=== PATIENT | male | born 1950 | race Caucasian/White ===

== ENCOUNTER → 2019-11-18 16:47 | Outpatient (CLI) | payer MEDICARE, OTHER, SELFPAY ==
--- NOTE | 2019-11-18 16:53 | DI.RAD.S_ITS ---
PROCEDURE: XR CHEST 2V INDICATIONS: CHEST PAIN FATIGUE TECHNIQUE: 2 views of the chest were acquired. COMPARISON: None. FINDINGS: Surgical changes and devices: None. Lungs and pleura: Lungs are clear. No pleural effusions or pneumothorax. Mediastinum: Mediastinal contours are normal. Heart size is normal. Bones and chest wall: No suspicious bony abnormalities. Soft tissues appear unremarkable. IMPRESSION: Normal for age, source of chest pain is not found. Dictated by: John Munoz M.D. on 11/18/2019 at 17:09 Approved by: John Munoz M.D. on 11/18/2019 at 17:10
== END ==
PROVIDERS: Referring Provider Internal Medicine Cardiovascular Disease; Visit Provider Student in an Organized Health Care Education/Training Program
DX: R07.9 Chest pain, unspecified (principal); R53.83 Other fatigue
CPT/HCPCS: 71046

== ENCOUNTER → 2020-08-23 15:29 | Outpatient (CLI) | payer MEDICARE, OTHER, SELFPAY ==
[2020-08-25 08:22] LABS: COVID19 Sendout Not Detected (Not Detect)
== END ==
PROVIDERS: Visit Provider Physician Assistant
DX: Z11.59 Encounter for screening for other viral diseases (principal)
CPT/HCPCS: 87635

== ENCOUNTER → 2020-08-26 14:52 | Outpatient (CLI) | payer MEDICARE, OTHER, SELFPAY ==
--- NOTE | 2020-09-02 10:07 | PM.PFT.1 ---
Pulmonary Function Test Referral & Results Date Patient Seen: 08/26/20 Requesting provider: Dary Kirby Indication: Short of breath Results: The spirometry demonstrates an FVC of 4.33 L which is 77% of predicted. The FEV1 was measured at 3.07 L which is 73% of predicted. The FEV1/FVC ratio was 71 which is 95% of predicted. Following the administration of bronchodilator there was 8% improvement in FEV1 and a 28% improvement in FEF 25-75%. Lung volumes show an SVC of 4.17 L which is 75% of predicted. The diffusing capacity was measured at 31.7 for which is 78% of predicted. No hemoglobin value was provided, so no correction for potential anemia could be made, if appropriate. The maximum voluntary ventilation was normal Interpretation: This study demonstrates mild obstructive lung disease based on reduction in FEV1. There is some minimal evidence of benefit following bronchodilator which is more pronounced in small airway flow based on improvement in FEF 25-75% as above. There may also be mild restrictive lung disease based on minimal reduction in lung volumes as above. There is also very mild reduction in diffusing capacity suggesting element of disease at the capillary alveolar level
== END ==
PROVIDERS: PCP Student in an Organized Health Care Education/Training Program; Referring Provider Student in an Organized Health Care Education/Training Program; Visit Provider Student in an Organized Health Care Education/Training Program
DX: R06.02 Shortness of breath (principal); J98.8 Other specified respiratory disorders
CPT/HCPCS: 94060; 94726

== ENCOUNTER → 2021-11-07 14:17 | Outpatient (CLI) | payer MEDICARE, OTHER, SELFPAY ==
[2021-11-07 18:32] LABS: COVID19 -Nasal RAPID Negative (Negative)
== END ==
PROVIDERS: PCP Student in an Organized Health Care Education/Training Program; Visit Provider Nurse Practitioner Family
DX: Z20.822 Contact with and (suspected) exposure to COVID-19 (principal)
CPT/HCPCS: 87635; C9803

== ENCOUNTER 2021-11-08 12:03 | Day surgery (SDC) | payer MEDICARE, OTHER, SELFPAY ==
--- NOTE | 2021-11-08 | PATH_ITS ---
[facility] Accession Number: [id number] . 01 Material submitted: . PART A: gastrointestinal site - ANTRUM BIOPSY PART B: gastrointestinal site - ANGULARIS BIOPSY PART C: gastrointestinal site - LESSOR CURVE POLYPS PART D: gastrointestinal site - GREATER CURVE POLYPS PART E: gastrointestinal site - BODY BIOPSY . 01 Clinical history: . DX COLONOSCOPY/EGD . 02 Diagnosis: A. Antrum, Biopsy: Gastric antral mucosa with no diagnostic abnormality. No evidence of Helicobacter organisms on H/E stain. Negative for intestinal metaplasia. Negative or dysplasia and malignancy. . B. Angularis, Biopsy: Gastric body mucosa with no diagnostic abnormality. No evidence of Helicobacter organisms on H/E stain. Negative for intestinal metaplasia. Negative or dysplasia and malignancy. . C. Lesser Curve Polyps, Biopsies: Gastric body mucosa with no diagnostic abnormality. No evidence of Helicobacter organisms on H/E stain. Negative for intestinal metaplasia. Negative or dysplasia and malignancy. . D. Greater Curve Polyps, Biopsies: Fundic gland polyps. Negative for Helicobacter organisms on H/E stain. Negative for dysplasia and malignancy. . E. Body, Biopsy: Gastric body mucosa with no diagnostic abnormality. No evidence of Helicobacter organisms on H/E stain. Negative for intestinal metaplasia. Negative or dysplasia and malignancy. [facility] 11/11/2021 1026 Local . 02 Electronically signed: . Riley Louis MD, PhD, Pathologist NPI- [id number] . 01 Gross description: . Part A: ANTRUM BIOPSY: Received in formalin is 1 fragment(s) of tidwell, soft tissue measuring 0.3 x 0.3 x 0.1 cm submitted entirely in 1 cassette(s) Part B: ANGULARIS BIOPSY: Received in formalin is 1 fragment(s) of tidwell, soft tissue measuring 0.3 x 0.3 x 0.2 cm submitted entirely in 1 cassette(s) Part C: LESSOR CURVE POLYPS: Received in formalin are 3 fragment(s) of tidwell, soft tissue measuring 0.3 x 0.2 x 0.1 cm to 0.3 x 0.1 x 0.1 cm submitted entirely in 1 cassette(s) Part D: GREATER CURVE POLYPS: Received in formalin are 2 fragment(s) of tidwell, soft tissue measuring 0.3 x 0.2 x 0.3 cm to 0.3 x 0.2 x 0.1 cm submitted entirely in 1 cassette(s) Part E: BODY BIOPSY: Received in formalin are 2 fragment(s) of tidwell, soft tissue measuring 0.3 x 0.3 x 0.2 cm to 0.1 x 0.1 x 0.1 cm submitted entirely in 1 cassette(s) /QBJ 11/09/2021 0851 Local . 02 Pathologist provided ICD-10: Z87.19, R15.9 . 02 CPT . 427197, 016248, 088318, 172867, 370475 Performed at: 01 [facility] [address] [id number] MD David Santoyo MD Phone: [phone] Performed at: 02 [facility] [address] [place], [place] [id number] MD Alma Koch MD Phone: [phone]
[2021-11-08 12:45] VITALS: BMI 29.0
[2021-11-08 12:58] VITALS: BP 158/92; PULSE 60; RESP 18; TEMP 36.6; O2SAT 99
[2021-11-08] MEDS: SODIUM CHLORIDE 0.9% 1,000 ML 84 ML IV (13:05)
--- NOTE | 2021-11-08 15:15 | PM.HP.1 ---
History of Present Illness History of Present Illness Date Patient Seen: 11/08/21 Time Patient Seen: 15:15 Chief complaint: DX COLONOSCOPY/EGD Narrative: I reviewed my note from September 26, 2021 no significant changes with the exception of I reviewed his prior histology from EGD 2016 and he there was some intestinal metaplasia at the site of an ulcer. Surveillance is therefore indicated. Patient History Family & Social History Social History: household members spouse Tobacco & Substance use: Smoking Status Never smoker alcohol intake frequency holiday/special occasion Substance Use Type marijuana Meds Home Medications and Allergies Home Medications Medication Instructions Recorded Confirmed Type lisinopril 20 1 tab PO QDAY #0 09/24/17 11/08/21 History mg-hydrochlorothiazide 12.5 mg tablet (Zestoretic) metformin 500 mg tablet,extended 500 mg PO QDAY #0 09/24/17 11/08/21 History release 24 hr (Glucophage XR) amlodipine 5 mg tablet 5 mg PO DAILY 11/08/21 11/08/21 History esomeprazole magnesium 40 mg 40 mg PO DAILY 11/08/21 11/08/21 History capsule,delayed release terazosin 1 mg capsule 1 mg PO DAILY 11/08/21 11/08/21 History Allergies Allergy/AdvReac Type Severity Reaction Status Date / Time No Known Drug Allergies Allergy Verified 11/08/21 13:05 Review of Systems Review of Systems ROS: Yes All systems reviewed with the patient and are negative except as otherwise documented Exam Vital Signs (past 8 hours): - 11/08/21 12:58 Temperature 97.8 F Pulse Rate 60 Respiratory Rate 18 Blood Pressure 158/92 H Pulse Oximetry 99 Oxygen Delivery Method Room Air Assessment & Plan Assessment & Plan narrative: Prior gastric intestinal metaplasia. Change in bowel habit with constipation and fecal leakage. EGD and colonoscopy are pursued today. Time Spent With Patient Critical Care time: I spent a total of [] minutes of critical care time on this patient's care today; this time is exclusive of procedural time.
--- NOTE | 2021-11-08 15:17 | PM.PREOP ---
Pre-operative Note COVID-19 COVID-19 status: Negative Result date/Date tested (Pos, Neg/Pending): 11/07/21 Interval Note History & Physical reviewed/Exam performed by Physician: No Changes to H&P: No ASA Class (for procedural sedation): II
--- NOTE | 2021-11-08 15:51 | PM.OP.EC ---
Operative Date/Time/Diagnoses Date of procedure: 11/08/21 Time of procedure: 15:51 Pre-op diagnosis: Prior gastric intestinal metaplasia, GERD, constipation change in bowel habits fecal incontinence Post-op diagnosis: same Procedure & Clinicians Study performed: EGD with biopsies and colonoscopy Same procedure as scheduled: Yes Indications: GERD prior gastric intestinal metaplasia change in bowel habit constipation fecal incontinence Surgeon: Dyllan Bell Procedure Notes SCOAP/Timeout: Done Procedure in detail: After the risks and benefits were explained, written and verbal informed consent was obtained. The patient was brought into the procedure room and placed into the left lateral decubitus position. Please see nurse hospice community liaison notes for sedation details. The scope was introduced into the mouth through the bite block and advanced under direct visualization to the 2nd portion of the duodenum. The scope was slowly withdrawn carefully examining the mucosa for any defects or lesions. Retroflexed views were accomplished in the stomach. The stomach was decompressed, the scope was then removed from the patient who tolerated the procedure well. The patient was then turned around a digital rectal examination accomplished no significant pathology appreciated. (Prior to the initial sedation digital rectal exam was accomplished and revealed reasonably normal tone slightly subjectively weak external anal sphincter mechanism, normal simulated defecation). The scope was introduced into the rectum and advanced to the cecum as identified by the appendiceal orifice and ileocecal valve. The scope was slowly withdrawn to carefully examine the mucosa for any defects or lesions. Multiple direct views were made through the dentate line for exclusion of pathology the colon was decompressed scope removed the patient tolerated the procedure well. Adult colonoscope Bowel prep fair copious amounts of irrigation and suction were required to render this adequate. Scope withdrawal time: 8 minutes Sedation minutes: 30 Complications: none Impression: 1. Duodenum this is normal from the bulb through to the 2nd portion. 2. Stomach: Mild gastropathy was seen. No mass lesions no outlet obstruction no significant pathology throughout. Gastric mapping was accomplished with biopsies from the antrum angularis lesser curve and gastric body. There were a couple of diminutive polyps that were taken from the greater curve. Retroflexed views of the LES were otherwise unremarkable. 3. Esophagus: The squamocolumnar junction correlated with the top of the gastric folds. GEJ was at 45 cm from the incisors. No acute erosive changes no strictures no mass lesions. There was a very small mucosal abrasion with the scope that we noted but no sustained bleeding. 4. Colon: No significant polyps mass lesions or inflammatory features identified throughout. Endoscopic diagnosis 1. Gastropathy 2. Diminutive gastric polyps 3. Grade 2 internal nonbleeding nonthrombosed hemorrhoids 4. Mildly subjectively weak external anal sphincter mechanism 5. Within bowel prep limitations visually unremarkable colonoscopy to cecum. Post-procedure Plan for aftercare: 1. Await histopathology 2. Continue anti-reflux therapy 3. Repeat colonoscopy 5 years time. 4. Owtc-[id number]-[id number] fiber supplementation for soft regular stools. 5. Follow up GI clinic. Disposition: PACU
[2021-11-08 15:56] VITALS: BP 133/74; PULSE 48; RESP 14; TEMP 36.4; O2SAT 99
[2021-11-08 16:00] VITALS: BP 165/85; PULSE 49; RESP 14; O2SAT 99
[2021-11-08 16:05] VITALS: BP 162/92; PULSE 45; RESP 16; O2SAT 100
[2021-11-08 16:10] VITALS: BP 171/87; PULSE 48; RESP 16; TEMP 36.4; O2SAT 100
[2021-11-08 16:17] VITALS: BP 159/84; PULSE 44; RESP 16; TEMP 36.4; O2SAT 100
== END 2021-11-08 16:34 | disposition home or self-care (01) ==
PROVIDERS: PCP Student in an Organized Health Care Education/Training Program; Referring Provider Internal Medicine Gastroenterology; Visit Provider Internal Medicine Gastroenterology
PROC: 0DJ08ZZ Inspection of Upper Intestinal Tract, Via Natural or Artificial Opening Endoscopic (ICD-10-PCS; CPT 43235; principal; 2021-11-08 15:00)
PROC: 0DJD8ZZ Inspection of Lower Intestinal Tract, Via Natural or Artificial Opening Endoscopic (ICD-10-PCS; CPT 45378; 2021-11-08 15:00)
DX: K59.00 Constipation, unspecified (principal); K21.9 Gastro-esophageal reflux disease without esophagitis; R15.9 Full incontinence of feces; Z87.19 Personal history of other diseases of the digestive system; I10 Essential (primary) hypertension; K31.9 Disease of stomach and duodenum, unspecified; K64.1 Second degree hemorrhoids; K31.7 Polyp of stomach and duodenum
CPT/HCPCS: 43239; 45378; J2704

== ENCOUNTER 2022-11-20 13:11 | Emergency (ER) | payer MEDICARE, OTHER, SELFPAY ==
[2022-11-20] VITALS (8 sets, daily range): BP systolic 100–164; BP diastolic 50–78; PULSE 38–54; RESP 14–20; TEMP 36.2; O2SAT 99; BMI 30.3
--- NOTE | 2022-11-20 13:27 | DI.RAD.S_ITS ---
PROCEDURE: XR CHEST 1V INDICATIONS: chest pain TECHNIQUE: One view of the chest was acquired. COMPARISON: [facility], CR, XR CHEST 2V, 11/18/2019, 16:54. FINDINGS: Surgical changes and devices: None. Lungs and pleura: On this semiupright portable chest examination, no large pneumothorax or large pleural effusions are seen. No focal infiltrates are seen. Mild generalized interstitial prominence can be seen. No focal infiltrates are seen. Mediastinum: Mediastinal contours appear normal. Heart size is mildly to moderately enlarged. Bones and chest wall: No suspicious bony lesions. Overlying soft tissues appear unremarkable. IMPRESSION: Cardiomegaly and interstitial prominence. CHF is suspected. Dictated by: George Brewster M.D. on 11/20/2022 at 13:06 Approved by: George Brewster M.D. on 11/20/2022 at 13:07
[2022-11-20] MEDS: ASPIRIN 81 MG CHEW TAB 324 MG PO (13:32)
[2022-11-20] MEDS: NITROGLYCERIN 0.4 MG SL TAB SL (13:33)
--- NOTE | 2022-11-20 13:38 | ED.CHESTPAIN ---
HPI - Chest Pain General Chief Complaint: Chest Pain Stated Complaint: CHEST PAIN Time Seen by Provider: 11/20/22 13:29 History of Present Illness HPI narrative: Patient is a 89-year-old male history of hypertension acid reflux presenting today with what he describes as heartburn. He says it has been ongoing for about a week. He thought today it was a little bit worse. In the shower he got a little nauseous when he got out he was extremely diaphoretic which never happened. Thought maybe the discomfort in his chest went to his jaw but did not actually feel too bad. He tried his acid reflux medicine at home it did not really help. Some point he was given nitroglycerin for an unknown reason he took 2 nitroglycerin at home which did seem to help and came to the ER. He describes pain is like a dull ache. No prior history of coronary artery disease. It does sound as though he had a heart catheterization by Dr. Sawyer about a year ago. Related Data Home Medications Medication Instructions Recorded Confirmed lisinopril 20 1 tab PO QDAY ##0 09/24/17 11/08/21 mg-hydrochlorothiazide 12.5 mg tablet (Zestoretic) metformin 500 mg tablet,extended 500 mg PO QDAY ##0 09/24/17 11/08/21 release 24 hr (Glucophage XR) amlodipine 5 mg tablet 5 mg PO DAILY 11/08/21 11/08/21 esomeprazole magnesium 40 mg 40 mg PO DAILY 11/08/21 11/08/21 capsule,delayed release terazosin 1 mg capsule 1 mg PO DAILY 11/08/21 11/08/21 Allergies Allergy/AdvReac Type Severity Reaction Status Date / Time No Known Drug Allergies Allergy Verified 11/08/21 13:05 Review of Systems Review of Systems Narrative: GENERAL: Denies chills, fatigue, malaise, fever, sweats, travel HEENT: Denies sinus pain, ear pain, sore throat, difficulty swallowing, neck pain RESPIRATORY: Denies dyspnea, cough, wheezing, hemoptysis, sputum. CARDIOVASCULAR: See HPI GASTROINTESTINAL: Denies nausea, vomiting, abdominal pain, diarrhea, constipation, melena. : Denies dysuria, frequency, incontinence, hematuria, urinary retention, flank pain. MUSCULOSKELETAL: Denies weakness, joint pain, or bony pain SKIN: No rash, no erythema, no pruritus NEUROLOGIC: Denies weakness, dizziness, headache, numbness, change in speech, confusion PSYCHIATRIC: No concerning psychosocial issues. 12 point review of systems is negative except for those stated above and HPI Patient History Social History household members: spouse Smoking Status: Never smoker Smoking Status: Never smoker alcohol intake frequency: holidays/special occasions only Substance Use Type: marijuana Exam Initial Vital Signs Initial Vital Signs: Vital Signs Temperature 97.1 F L 11/20/22 13:12 Pulse Rate 50 L 11/20/22 13:12 Respiratory Rate 20 11/20/22 13:12 Blood Pressure 164/78 H 11/20/22 13:12 Pulse Oximetry 99 11/20/22 13:12 Oxygen Delivery Method 11/20/22 13:12 GENERAL: Alert pleasant 72-year-old male and in no acute distress. HEENT: Head atraumatic,EOMI, pupils reactive, face symmetric, moist mucous membranes CARDIOVASCULAR: Regular rate and rhythm without murmurs, rubs or gallops. RESPIRATORY: Breath sounds equal bilaterally, no wheezes rales or rhonchi. ABDOMEN: Soft, nontender. Normoactive bowel sounds all 4 quadrants. No guarding or rebound. EXTREMITIES: Normal range of motion, no clubbing or edema. Neurovascularly intact NEUROLOGICAL: Alert and oriented x4.Normal gait and speech. SKIN: Warm, dry, no laceration, no petechiae, no rashes or lesions. Course Orders Ordered: ED Orders 11/20/22 13:24 Complete Blood Count AUTO DIFF Stat Comprehensive Metabolic Panel Stat D Dimer Stat Lipase Stat Magnesium Stat Partial Thromboplastin Time Stat Prothrombin Time INR Stat Troponin & CK Cardiac Panel Stat 11/20/22 13:27 XR chest 1V Stat COVID19 -Nasal RAPID/Pre-Proc Stat EKG-12 Lead Stat 11/20/22 13:29 BNP [NT-proBNP (BNP-Adult 18+)] Stat 11/20/22 13:36 EKG-12 Lead Routine Discontinued Medications Aspirin (Aspirin 81 Mg Chew Tab) 324 mg PO NOW ONE Stop: 11/20/22 13:28 Last Admin: 11/20/22 13:32 Dose: 324 mg Documented By: MALINA Heparin Sodium (Porcine) (Heparin 5,000 Unit/Ml Vial) 5,000 unit IV NOW ONE Stop: 11/20/22 13:44 Last Admin: 11/20/22 13:47 Dose: 5,000 unit Documented By: MALINA Heparin Sodium/Dextrose (Heparin Drip) 25,000 unit in 500 mls @ 20 mls/hr IV CONT DANIELLE; Protocol Last Titration: 11/20/22 14:06 Dose: 1,000 units/hr, 20 mls/hr Documented By: Admin: 11/20/22 13:48 Dose: 1,000 units/hr, 20 mls/hr Documented By: MALINA Nitroglycerin (Nitroglycerin 0.4 Mg Sl Tab) 0.4 mg SL [id number] PRN PRN Reason: Chest Pain Last Admin: 11/20/22 13:33 Dose: 0.4 mg Documented By: MALINA Vital Signs Vital signs: Vital Signs - 8 hr 11/20/22 13:33 11/20/22 13:12 11/20/22 13:25 Temperature 97.1 F L Pulse Rate 54 L 50 L 50 L Respiratory Rate 20 20 Blood Pressure 154/78 H 164/78 H 144/78 H Pulse Oximetry 99 99 Oxygen Delivery Method Room Air Room Air 11/20/22 13:40 11/20/22 13:30 11/20/22 13:45 Temperature Pulse Rate 38 L 45 L 39 L Respiratory Rate 14 16 15 Blood Pressure 100/78 138/78 133/70 Pulse Oximetry 99 99 Oxygen Delivery Method Room Air Room Air 11/20/22 13:50 11/20/22 13:55 Temperature Pulse Rate 44 L 41 L Respiratory Rate 17 19 Blood Pressure 122/70 117/50 L Pulse Oximetry Oxygen Delivery Method MDM - Chest Pain Lab Data Result diagrams: 11/20/22 13:24 11/20/22 13:24 Labs: Lab Results 11/20/22 11/20/22 11/20/22 Range/Units 13:24 13:24 13:24 WBC 6.8 (4.5-11.0) X10^3/uL RBC 4.93 (4.5-5.9) X10^6/uL Hgb 14.5 (13.5-17.5) g/dL Hct 42.6 (41-53) % MCV 86.5 (80-100) fL MCH 29.4 (26-34) PG MCHC 34.0 (30-36) % RDW 13.2 (11.6-14.8) % Plt Count 198 (150-400) X10^3/uL Neut % (Auto) 59.4 (50-75) % Lymph % (Auto) 28.8 (25-40) % Bosque % (Auto) 8.9 (3-14) % Eos % (Auto) 2.3 (2-4) % Baso % (Auto) 0.6 (0-2) % Neut # (Auto) 4100 (2606-6236) /uL Lymph # (Auto) 2000 (5291-9666) /uL Bosque # (Auto) 600 (0-900) /uL Eos # (Auto) 200 (0-450) /uL Baso # (Auto) 0 (0-100) /uL PT 12.1 (10.1-12.7) SECONDS INR 1.1 (0.9-1.3) APTT 27 (26-36) SECONDS D-Dimer (<500) ng/ml Sodium 140 (137-145) mmol/L Potassium 3.2 L (3.4-5.1) mmol/L Chloride 101 (98-107) mmol/L Carbon Dioxide 27 (22-32) mmol/L BUN 13 (9-20) mg/dL Creatinine 1.03 (0.66-1.25) mg/dL Estimated GFR > 60 (>60) mL/min BUN/Creatinine Ratio 12.6 (6-22) Glucose 141 H (80-110) mg/dL Calcium 9.6 (8.4-10.2) mg/dL Magnesium 1.9 (1.6-2.3) mg/dL Total Bilirubin 0.9 (0.2-1.3) mg/dL AST 28 (17-59) IU/L ALT 26 (<50) IU/L Alkaline Phosphatase 82 (38-126) U/L Total Creatine Kinase 67 (55-170) U/L CK-MB (CK-2) TNP CK-MB (CK-2) Rel Index TNP Troponin I 0.724 H* (0.01-0.034) ng/mL NT-Pro-B Natriuret Pep (<125) pg/mL Total Protein 7.4 (6.3-8.2) g/dL Albumin 4.3 (3.5-5.0) g/dL Globulin 3.1 (1.7-4.1) g/dL Albumin/Globulin Ratio 1.4 (1.0-2.8) Lipase 125 (23-300) U/L SARS-CoV-2 (PCR) (Negative) 11/20/22 11/20/22 11/20/22 Range/Units 13:24 13:27 13:29 WBC (4.5-11.0) X10^3/uL RBC (4.5-5.9) X10^6/uL Hgb (13.5-17.5) g/dL Hct (41-53) % MCV (80-100) fL MCH (26-34) PG MCHC (30-36) % RDW (11.6-14.8) % Plt Count (150-400) X10^3/uL Neut % (Auto) (50-75) % Lymph % (Auto) (25-40) % Bosque % (Auto) (3-14) % Eos % (Auto) (2-4) % Baso % (Auto) (0-2) % Neut # (Auto) (5136-7371) /uL Lymph # (Auto) (7395-2199) /uL Bosque # (Auto) (0-900) /uL Eos # (Auto) (0-450) /uL Baso # (Auto) (0-100) /uL PT (10.1-12.7) SECONDS INR (0.9-1.3) APTT (26-36) SECONDS D-Dimer 538 H (<500) ng/ml Sodium (137-145) mmol/L Potassium (3.4-5.1) mmol/L Chloride (98-107) mmol/L Carbon Dioxide (22-32) mmol/L BUN (9-20) mg/dL Creatinine (0.66-1.25) mg/dL Estimated GFR (>60) mL/min BUN/Creatinine Ratio (6-22) Glucose (80-110) mg/dL Calcium (8.4-10.2) mg/dL Magnesium (1.6-2.3) mg/dL Total Bilirubin (0.2-1.3) mg/dL AST (17-59) IU/L ALT (<50) IU/L Alkaline Phosphatase (38-126) U/L Total Creatine Kinase (55-170) U/L CK-MB (CK-2) CK-MB (CK-2) Rel Index Troponin I (0.01-0.034) ng/mL NT-Pro-B Natriuret Pep 231 H (<125) pg/mL Total Protein (6.3-8.2) g/dL Albumin (3.5-5.0) g/dL Globulin (1.7-4.1) g/dL Albumin/Globulin Ratio (1.0-2.8) Lipase (23-300) U/L SARS-CoV-2 (PCR) Negative (Negative) Imaging Data Chest x-ray: My Impression: No acute cardiopulmonary process Radiologist's Impression: [address] [place] [id number] XRay Report Signed Patient: Pelon Bassett MR#: [id number] : 1950 Acct:[id number] Age/Sex: 72 / M Date of Service: 11/20/22 Loc: ED Accession Number: [id number] ?? Procedure: XR chest 1V Ordering Provider: Nan Devries D.O. PROCEDURE:? XR CHEST 1V ? INDICATIONS:? chest pain ? TECHNIQUE:? One view of the chest was acquired.? ? COMPARISON:? [facility], , XR CHEST 2V, 11/18/2019, 16:54. ? FINDINGS:? ? Surgical changes and devices:? None.? ? Lungs and pleura:? On this semiupright portable chest examination, no large pneumothorax or large pleural effusions are seen.? No focal infiltrates are seen.? Mild generalized interstitial prominence can be seen.? No focal infiltrates are seen. ? Mediastinum:? Mediastinal contours appear normal.? Heart size is mildly to moderately enlarged.? ? Bones and chest wall:? No suspicious bony lesions.? Overlying soft tissues appear unremarkable.? IMPRESSION:? Cardiomegaly and interstitial prominence.? CHF is suspected. ? ? Dictated by: George Brewster M.D. on 11/20/2022 at 13:06 ? ? ECG Data Interpretation: EKG 1. Sinus rhythm with frequent PVCs ST depression noted in V4 V5 and V6 EKG 2. ST elevation to [address] depression in 1 aVL MDM Narrative Medical decision making narrative: Patient certainly has symptoms concerning for SC. Especially with diaphoresis nausea and ongoing chest discomfort not really resolved with antacid medication. 2nd EKG does confirm inferior STEMI. Dr. Moises Hood accepts at [facility] ED Patient is given aspirin started on heparin and nitro Discharge Plan Departure Patient Disposition: [facility] Clinical Impression: ST elevation SC (STEMI) Prescriptions: No Action lisinopril-hydrochlorothiazide [Zestoretic] 20 MG/12.5 MG tablet 1 tab PO QDAY Qty: 0 metformin [Glucophage XR] 500 MG tablet extended release 24 hr 500 mg PO QDAY Qty: 0 terazosin 1 mg capsule 1 mg PO DAILY Label Comments: TAKE 1 TABLET BY MOUTH EVERY NIGHT AT BEDTIME amlodipine 5 mg tablet 5 mg PO DAILY esomeprazole magnesium 40 mg capsule,delayed release(DR/EC) 40 mg PO DAILY Referrals: Dary Kirby MD [Primary Care Provider] -
[2022-11-20 13:41] LABS: Add Manual Diff / Slide Review NO; Basophils Absolute Auto 0 /uL (0-100); Basophils Percent Auto 0.6 % (0-2); Eosinophils Absolute Auto 200 /uL (0-450); Eosinophils Percent Auto 2.3 % (2-4); Hematocrit 42.6 % (41-53); Hemoglobin 14.5 g/dL (13.5-17.5); Lymphocytes Absolute Auto 2000 /uL (1100-4500); Lymphocytes Percent Auto 28.8 % (25-40); Mean Corpuscular Hemoglobin 29.4 PG (26-34); Mean Corpuscular Volume 86.5 fL (80-100); Monocytes Absolute Auto 600 /uL (0-900); Monocytes Percent Auto 8.9 % (3-14); Neutrophils Absolute Auto 4100 /uL (1500-7000); Neutrophils Percent Auto 59.4 % (50-75); Platelet Count 198 X10^3/uL (150-400); Red Blood Cell Count 4.93 X10^6/uL (4.5-5.9); Red Cell Distribution Width 13.2 % (11.6-14.8); White Blood Cell Count 6.8 X10^3/uL (4.5-11.0)
[2022-11-20] MEDS: HEPARIN 5,000 UNIT/ML VIAL 5000 UNIT IV (13:47)
[2022-11-20] MEDS: HEPARIN DRIP 25,000 UNIT/500 ML IV.SOLN 20 UNIT IV (13:48)
[2022-11-20 13:50] LABS: INR 1.1 (0.9-1.3); Prothrombin Time 12.1 SECONDS (10.1-12.7)
[2022-11-20 13:52] LABS: PTT Partial Thromboplastin Tim 27 SECONDS (26-36)
[2022-11-20] MEDS: NITROGLYCERIN 50 MG/250 ML INFUS..BTL IV (13:54)
[2022-11-20 14:02] LABS: COVID19 -Nasal RAPID Negative (Negative)
[2022-11-20 14:15] LABS: Alanine Aminotransferase 26 IU/L (<50); Albumin 4.3 g/dL (3.5-5.0); Albumin Globulin Ratio 1.4 (1.0-2.8); Alkaline Phosphatase 82 U/L (38-126); Aspartate Aminotransferase 28 IU/L (17-59); BUN Creatinine Ratio 12.6 (6-22); Bilirubin Total 0.9 mg/dL (0.2-1.3); Blood Urea Nitrogen 13 mg/dL (9-20); Calcium 9.6 mg/dL (8.4-10.2); Carbon Dioxide 27 mmol/L (22-32); Chloride 101 mmol/L (98-107); Creatine Kinase 67 U/L (55-170); Estimated Glomerular Filt Rate > 60 mL/min (>60); Globulin 3.1 g/dL (1.7-4.1); Glucose 141 mg/dL (80-110); HEMOLYSIS < 15 (0-50); Lipase 125 U/L (23-300); Magnesium 1.9 mg/dL (1.6-2.3); Potassium 3.2 mmol/L (3.4-5.1); Sodium 140 mmol/L (137-145); Total Protein 7.4 g/dL (6.3-8.2)
[2022-11-20 14:26] LABS: NT-proBNP (BNP-Adult 18+) 231 pg/mL (<125)
--- NOTE | 2022-11-20 14:41 | PC.NURSE ---
NTG gtt running at 1.5 ml/hr as ordered, transferred to [facility]- for Stat transfer to [facility] upon d/c.
[2022-11-20 14:46] LABS: D Dimer 538 ng/ml (<500)
[2022-11-20 14:52] LABS: Troponin I 0.724 ng/mL (0.01-0.034)
== END 2022-11-20 14:10 | disposition short-term general hospital (02) ==
PROVIDERS: Emergency Provider Emergency Medicine; PCP Student in an Organized Health Care Education/Training Program
DX: I21.3 ST elevation (STEMI) myocardial infarction of unspecified site (principal); R07.9 Chest pain, unspecified; Z20.822 Contact with and (suspected) exposure to COVID-19
CPT/HCPCS: 36415; 71045; 80053; 82550; 83690; 83735; 83880; 84484; 85025; 85379; 85610; 85730; 87635; 93005; 96365; 96375; 99284; C9803; J1644

== ENCOUNTER → 2022-12-06 13:22 | Outpatient (ROUT) | payer MEDICARE, OTHER, SELFPAY ==
[2022-12-06 13:47] LABS: Creatine Kinase 57 U/L (55-170)
[2022-12-06 13:57] LABS: Troponin I < 0.012 ng/mL (0.01-0.034)
== END ==
PROVIDERS: PCP Student in an Organized Health Care Education/Training Program; Visit Provider Family Medicine
DX: R07.9 Chest pain, unspecified (principal)
CPT/HCPCS: 82550; 84484

== ENCOUNTER → 2023-05-03 14:20 | Outpatient (CLI) | payer MEDICARE, OTHER, SELFPAY ==
--- NOTE | 2023-05-03 | DI.NM.S_ITS ---
PROCEDURE: NM SIMON PERF SPECT R&S PHARM Rest and pharmacological stress myocardial perfusion SPECT with gated imaging and ejection fraction RADIOPHARMACEUTICAL: 24.5 mCi Tc-99m tetrafosmin IV at rest and 26.1 mCi Tc-99m tetrafosmin IV at peak effect of pharmacological stress. Hco-cnd-aiwozyyl was performed. INDICATIONS: CHEST PAIN TECHNIQUE: Radiopharmaceutical was injected at peak stress test, and also at rest. SPECT images were obtained. SPECT myocardial perfusion images were displayed in short axis, horizontal long axis, and vertical long axis views. Gated images were reviewed using Trak software. COMPARISON: None. CARDIAC STRESS: A pharmacologic stress test was performed under the supervision of an attending staff, using an infusion of regadenoson 0.4 mg IV. Hemodynamic data: There is normal blood pressure and heart rate response to pharmacologic stress. Symptoms: The patient denied anginal chest pain. EKG: No diagnostic changes of ischemia; occasional PVCs noted. FINDINGS: Raw data: There is good myocardial uptake of radiotracer. No significant motion artifacts. Oaxx-ja-hefap ratio is 0.44 (normal is less than 0.38 for tetrafosmin tracer). Left ventricle function: Gated images demonstrate inferior hypokinesis. No segmental wall motion abnormalities. No transient ischemic dilation; TID is 1.01 (normal less than 1.3). Left ventricle resting end diastolic volume is 246 mL. Left ventricle stress ejection fraction is 52%; normal range is above 45%. Myocardial perfusion: There is a large size, moderate to severe intensity fixed inferior wall defect extending to the apex with some but not complete improvement in the basal to mid inferior wall and prone imaging. No reversible perfusion defects. IMPRESSION: Abnormal study however without evidence of ischemia. The fixed perfusion defect in the mid to distal and apical portion of the inferior wall along with inferior hypokinesis is consistent with scar. Normal LV function with cavity dilation based on calculated LVEDV the of 246 mL. PVCs noted throughout the study. Dictated by: Bobbi Rodriguez D.O. on 05/04/2023 at 16:00 Approved by: Bobbi Rodriguez D.O. on 05/04/2023 at 16:06
== END ==
PROVIDERS: PCP Family Medicine; Visit Provider Nurse Practitioner Family
DX: I25.119 Atherosclerotic heart disease of native coronary artery with unspecified angina pectoris (principal); I21.02 ST elevation (STEMI) myocardial infarction involving left anterior descending coronary artery; R07.9 Chest pain, unspecified; I44.7 Left bundle-branch block, unspecified; R94.39 Abnormal result of other cardiovascular function study
CPT/HCPCS: 78452; 93017; A9502; J2785

== ENCOUNTER → 2023-10-25 13:21 | Outpatient (CLI) | payer MEDICARE, OTHER, SELFPAY ==
--- NOTE | 2023-10-25 | DI.RAD.S_ITS ---
PROCEDURE: XR FOOT LT MIN 3V INDICATIONS: TOE INJURY TECHNIQUE: 3 views of the foot were acquired. COMPARISON: None. FINDINGS: Bones: Vertically oriented linear lucency traverses the proximal phalanx of the 3rd digit. Soft tissues: No tibiotalar joint effusion. Achilles tendon appears normal. IMPRESSION: 3rd digit fracture. Dictated by: Sourav Mariscal M.D. on 10/25/2023 at 15:30 Approved by: Sourav Mariscal M.D. on 10/25/2023 at 15:30
== END ==
PROVIDERS: PCP Family Medicine; Referring Provider Family Medicine; Visit Provider Family Medicine
DX: S92.512A Displaced fracture of proximal phalanx of left lesser toe(s), initial encounter for closed fracture (principal); X58.XXXA Exposure to other specified factors, initial encounter
CPT/HCPCS: 73630

== ENCOUNTER 2024-07-31 12:30 | Outpatient (RCR) | payer MEDICARE, OTHER, SELFPAY | END 2024-07-31 14:30 | LOC: CAR 12:30 | PROVIDERS: PCP Family Medicine; Referring Provider Internal Medicine Cardiovascular Disease; Visit Provider Internal Medicine Cardiovascular Disease | DX: Z95.820 Peripheral vascular angioplasty status with implants and grafts (principal) | CPT/HCPCS: 93798 ==

== ENCOUNTER 2024-10-24 05:43 | Emergency (ER) | payer MEDICARE, OTHER, SELFPAY ==
[2024-10-24 05:47] VITALS: BP 171/92; PULSE 95; O2SAT 98
[2024-10-24 05:49] VITALS: BP 171/92; PULSE 74; RESP 18; TEMP 36.1; O2SAT 97; BMI 28.5
[2024-10-24] MEDS: ONDANSETRON 4 MG ODT PO (05:55)
[2024-10-24] MEDS: KETOROLAC 30 MG/ML VIAL 15 MG IV (05:55)
[2024-10-24 06:00] VITALS: PULSE 50; O2SAT 99
--- NOTE | 2024-10-24 06:00 | ED.GENADULT ---
HPI - General Adult <Kevin Ceja DO - Last Filed: 10/24/24 17:54> General Chief complaint: Urogenital-Male Stated complaint: possible kidney stone Time Seen by Provider: 10/24/24 05:46 Source: patient Mode of arrival: Ambulatory History of Present Illness HPI narrative: Patient is a 73-year-old male here evaluation of left-sided abdominal/ flank pain. He was also having urinary hesitancy and frequency. He stated that his symptoms started actually 2 days ago. It went away for about 24 hours and then 12 hours ago it came back again. Is the same pain that he had 2 days ago. It was worse this time. Is having nausea but no vomiting. No fevers. Has not had a bowel movement in the past 12 hours. No history of kidney stones. He states that the discomfort is somewhat worse with palpation. No skin changes. Has not tried anything for the symptoms prior to arrival. Related Data Home Medications Medication Instructions Recorded Confirmed lisinopril 20 1 tab PO QDAY ##0 09/24/17 11/08/21 mg-hydrochlorothiazide 12.5 mg tablet (Zestoretic) metformin 500 mg tablet,extended 500 mg PO QDAY ##0 09/24/17 11/08/21 release 24 hr (Glucophage XR) amlodipine 5 mg tablet 5 mg PO DAILY 11/08/21 11/08/21 esomeprazole magnesium 40 mg 40 mg PO DAILY 11/08/21 11/08/21 capsule,delayed release terazosin 1 mg capsule 1 mg PO DAILY 11/08/21 11/08/21 Previous Rx's Medication Instructions Recorded hydrocodone 7.5 mg-acetaminophen 1 tab PO Q6H PRN pain #20 tabs 10/24/24 325 mg tablet lactulose 20 gram/30 mL oral 20 g (30 mL) PO BID #300 mL 10/24/24 solution naproxen 500 mg tablet 500 mg PO BID 7 days #14 tabs 10/24/24 ondansetron 4 mg disintegrating 4 mg PO Q6H PRN nausea and 10/24/24 tablet vomiting #10 tabs Allergies Allergy/AdvReac Type Severity Reaction Status Date / Time No Known Drug Allergies Allergy Verified 11/08/21 13:05 Review of Systems <DO Omar Monroy Last Filed: 10/24/24 17:54> Review of Systems ROS Unobtainable: All systems reviewed & are unremarkable except as noted in HPI and below Patient History <Kevin Ceja DO - Last Filed: 10/24/24 17:54> Social History household members: spouse Smoking Status: Never smoker Smoking Status: Never smoker alcohol intake frequency: holidays/special occasions only Substance Use Type: marijuana Exam <Kevin Ceja DO - Last Filed: 10/24/24 17:54> Initial Vital Signs Initial Vital Signs: Vital Signs Pulse Rate 95 H 10/24/24 05:47 Blood Pressure 171/92 H 10/24/24 05:47 Pulse Oximetry 98 10/24/24 05:47 Const General: cooperative and No ill appearing HENMT Head: normal to inspection and atraumatic Resp Effort & Inspection: normal respiratory effort Cardio Rate: regular rate GI Inspection: normal to inspection and non-distended Palpation: soft and No tender Skin General: no rashes or lesions noted Neuro General: patient alert, patient awake, patient oriented x3 and moves all extremities <Aayush Monroy MD - Last Filed: 10/24/24 11:21> Initial Vital Signs Initial Vital Signs: Vital Signs Pulse Rate 95 H 10/24/24 05:47 Blood Pressure 171/92 H 10/24/24 05:47 Pulse Oximetry 98 10/24/24 05:47 Course <Kevin Ceja DO - Last Filed: 10/24/24 17:54> Orders Ordered: Discontinued Medications Hydrocodone Bitart/Acetaminophen (Hydrocodone/Acet 5/325 Tablet) 1 tab PO NOW ONE Stop: 10/24/24 08:56 Last Admin: 10/24/24 09:05 Dose: 1 tab Documented By: JO Hydromorphone HCl (Hydromorphone 0.5 Mg Inj) 0.5 mg IV NOW ONE Stop: 10/24/24 08:04 Last Admin: 10/24/24 08:12 Dose: 0.5 mg Documented By: JO Ketorolac Tromethamine (Ketorolac 30 Mg/Ml Vial) 15 mg IV NOW ONE Stop: 10/24/24 05:48 Last Admin: 10/24/24 05:55 Dose: 15 mg Documented By: BENNY Lactulose (Lactulose 20 Gm/30 Ml Solution) 20 gm PO NOW ONE Stop: 10/24/24 09:07 Last Admin: 10/24/24 09:22 Dose: 20 gm Documented By: IBRAHIMA Ondansetron HCl (Ondansetron 4 Mg Odt) 4 mg PO NOW ONE Stop: 10/24/24 05:48 Last Admin: 10/24/24 05:55 Dose: 4 mg Documented By: BENNY Ondansetron HCl (Ondansetron 4 Mg/2 Ml Inj) 4 mg IV NOW ONE Stop: 10/24/24 08:04 Last Admin: 10/24/24 08:13 Dose: 4 mg Documented By: JO Vital Signs Vital signs: Vital Signs - 8 hr 10/24/24 05:47 10/24/24 05:47 10/24/24 05:49 Temperature 97.0 F L Pulse Rate 95 H 74 Respiratory Rate 18 Blood Pressure 171/92 H 171/92 H Pulse Oximetry 98 97 Oxygen Delivery Method Room Air 10/24/24 06:00 10/24/24 06:19 10/24/24 06:19 Temperature Pulse Rate 50 L 75 Respiratory Rate Blood Pressure 168/80 H Pulse Oximetry 99 98 Oxygen Delivery Method 10/24/24 06:30 10/24/24 06:30 10/24/24 09:33 Temperature Pulse Rate 51 L 69 Respiratory Rate 18 Blood Pressure 141/72 H 156/80 H Pulse Oximetry 97 99 Oxygen Delivery Method Room Air <Aayush Monroy MD - Last Filed: 10/24/24 11:21> Orders Ordered: Discontinued Medications Hydrocodone Bitart/Acetaminophen (Hydrocodone/Acet 5/325 Tablet) 1 tab PO NOW ONE Stop: 10/24/24 08:56 Last Admin: 10/24/24 09:05 Dose: 1 tab Documented By: JO Hydromorphone HCl (Hydromorphone 0.5 Mg Inj) 0.5 mg IV NOW ONE Stop: 10/24/24 08:04 Last Admin: 10/24/24 08:12 Dose: 0.5 mg Documented By: JO Ketorolac Tromethamine (Ketorolac 30 Mg/Ml Vial) 15 mg IV NOW ONE Stop: 10/24/24 05:48 Last Admin: 10/24/24 05:55 Dose: 15 mg Documented By: BENNY Lactulose (Lactulose 20 Gm/30 Ml Solution) 20 gm PO NOW ONE Stop: 10/24/24 09:07 Last Admin: 10/24/24 09:22 Dose: 20 gm Documented By: IBRAHIMA Ondansetron HCl (Ondansetron 4 Mg Odt) 4 mg PO NOW ONE Stop: 10/24/24 05:48 Last Admin: 10/24/24 05:55 Dose: 4 mg Documented By: BENNY Ondansetron HCl (Ondansetron 4 Mg/2 Ml Inj) 4 mg IV NOW ONE Stop: 10/24/24 08:04 Last Admin: 10/24/24 08:13 Dose: 4 mg Documented By: JO Vital Signs Vital signs: Vital Signs - 8 hr 10/24/24 05:47 10/24/24 05:47 10/24/24 05:49 Temperature 97.0 F L Pulse Rate 95 H 74 Respiratory Rate 18 Blood Pressure 171/92 H 171/92 H Pulse Oximetry 98 97 Oxygen Delivery Method Room Air 10/24/24 06:00 10/24/24 06:19 10/24/24 06:19 Temperature Pulse Rate 50 L 75 Respiratory Rate Blood Pressure 168/80 H Pulse Oximetry 99 98 Oxygen Delivery Method 10/24/24 06:30 10/24/24 06:30 10/24/24 09:33 Temperature Pulse Rate 51 L 69 Respiratory Rate 18 Blood Pressure 141/72 H 156/80 H Pulse Oximetry 97 99 Oxygen Delivery Method Room Air Medical Decision Making <Kevin Ceja DO - Last Filed: 10/24/24 17:54> Lab Data Lab results reviewed: Yes I reviewed the patient's lab results. 10/24/24 05:55 10/24/24 05:55 Labs: Lab Results 10/24/24 10/24/24 Range/Units 05:55 06:40 WBC 10.5 (4.5-11.0) X10^3/uL RBC 4.84 (4.5-5.9) X10^6/uL Hgb 14.3 (13.5-17.5) g/dL Hct 41.9 (41-53) % MCV 86.6 (80-100) fL MCH 29.5 (26-34) PG MCHC 34.1 (30-36) % RDW 13.4 (11.6-14.8) % Plt Count 177 (150-400) X10^3/uL Neut % (Auto) 85.4 H (50-75) % Lymph % (Auto) 7.7 L (25-40) % [place] % (Auto) 5.4 (3-14) % Eos % (Auto) 1.2 L (2-4) % Baso % (Auto) 0.3 (0-2) % Neut # (Auto) 9000 H (9067-8173) /uL Lymph # (Auto) 800 L (4870-7796) /uL [place] # (Auto) 600 (0-900) /uL Eos # (Auto) 100 (0-450) /uL Baso # (Auto) 0 (0-100) /uL Sodium 134 L (137-145) mmol/L Potassium 3.8 (3.4-5.1) mmol/L Chloride 100 (98-107) mmol/L Carbon Dioxide 25 (22-32) mmol/L BUN 23 H (9-20) mg/dL Creatinine 1.08 (0.66-1.25) mg/dL Estimated GFR > 60 (>60) mL/min BUN/Creatinine Ratio 21.3 (6-22) Glucose 184 H (80-110) mg/dL Calcium 9.5 (8.4-10.2) mg/dL Urine RBC 5-10/hpf H (0-5/HPF) Urine WBC 1-5/hpf (0-5/HPF) Ur Squamous Epith Cells 0-1 /hpf (0-5/HPF) Urine Bacteria None seen (None) Hyaline Casts 0-1/lpf (None) Ur Culture Indicated? Cult not indicated Vol Urine Centrifuged 10ml (spun) Urine Dip Bedside Urine Glucose Negative Bedside Urine Bilirubin - Negative Bedside Urine Ketone - Negative Urine Specific [place] 1.025 Bedside Urine Occult Blood ++ Bedside Urine pH 5.5 Bedside Urine Protein - Negative Bedside Urine Urobilinogen - Negative Bedside Urine Nitrite - Negative Bedside Urine Leukocytes - Negative Esterase Point of care testing: Urine Dip Bedside Urine Glucose Negative Bedside Urine Bilirubin - Negative Bedside Urine Ketone - Negative Urine Specific [place] 1.025 Bedside Urine Occult Blood ++ Bedside Urine pH 5.5 Bedside Urine Protein - Negative Bedside Urine Urobilinogen - Negative Bedside Urine Nitrite - Negative Bedside Urine Leukocytes - Negative Esterase MDM Narrative Medical decision making narrative: 73-year-old male arrives with 12 hours of persistent left-sided flank discomfort. Kidney functions unremarkable. Urinalysis has blood but no other signsOf infection. Pain is not reproducible with palpation. CT scan is ordered. Pain medication ordered. Care turned over to Dr. Monroy at change of shift to follow up on CT result and disposition. <Aayush Monroy MD - Last Filed: 10/24/24 11:21> Lab Data Labs: Lab Results 10/24/24 10/24/24 Range/Units 05:55 06:40 WBC 10.5 (4.5-11.0) X10^3/uL RBC 4.84 (4.5-5.9) X10^6/uL Hgb 14.3 (13.5-17.5) g/dL Hct 41.9 (41-53) % MCV 86.6 (80-100) fL MCH 29.5 (26-34) PG MCHC 34.1 (30-36) % RDW 13.4 (11.6-14.8) % Plt Count 177 (150-400) X10^3/uL Neut % (Auto) 85.4 H (50-75) % Lymph % (Auto) 7.7 L (25-40) % [place] % (Auto) 5.4 (3-14) % Eos % (Auto) 1.2 L (2-4) % Baso % (Auto) 0.3 (0-2) % Neut # (Auto) 9000 H (8493-9276) /uL Lymph # (Auto) 800 L (5148-7285) /uL [place] # (Auto) 600 (0-900) /uL Eos # (Auto) 100 (0-450) /uL Baso # (Auto) 0 (0-100) /uL Sodium 134 L (137-145) mmol/L Potassium 3.8 (3.4-5.1) mmol/L Chloride 100 (98-107) mmol/L Carbon Dioxide 25 (22-32) mmol/L BUN 23 H (9-20) mg/dL Creatinine 1.08 (0.66-1.25) mg/dL Estimated GFR > 60 (>60) mL/min BUN/Creatinine Ratio 21.3 (6-22) Glucose 184 H (80-110) mg/dL Calcium 9.5 (8.4-10.2) mg/dL Urine RBC 5-10/hpf H (0-5/HPF) Urine WBC 1-5/hpf (0-5/HPF) Ur Squamous Epith Cells 0-1 /hpf (0-5/HPF) Urine Bacteria None seen (None) Hyaline Casts 0-1/lpf (None) Ur Culture Indicated? Cult not indicated Vol Urine Centrifuged 10ml (spun) Urine Dip Bedside Urine Glucose Negative Bedside Urine Bilirubin - Negative Bedside Urine Ketone - Negative Urine Specific [place] 1.025 Bedside Urine Occult Blood ++ Bedside Urine pH 5.5 Bedside Urine Protein - Negative Bedside Urine Urobilinogen - Negative Bedside Urine Nitrite - Negative Bedside Urine Leukocytes - Negative Esterase Point of care testing: Urine Dip Bedside Urine Glucose Negative Bedside Urine Bilirubin - Negative Bedside Urine Ketone - Negative Urine Specific [place] 1.025 Bedside Urine Occult Blood ++ Bedside Urine pH 5.5 Bedside Urine Protein - Negative Bedside Urine Urobilinogen - Negative Bedside Urine Nitrite - Negative Bedside Urine Leukocytes - Negative Esterase MDM Narrative Medical decision making narrative: 73-year-old male arrives with 12 hours of persistent left-sided flank discomfort. Kidney functions unremarkable. Urinalysis has blood but no other signsOf infection. Pain is not reproducible with palpation. CT scan is ordered. Pain medication ordered. Care turned over to Dr. Monroy at change of shift to follow up on CT result and disposition. 10/24/2024, 0700, Porf[place]io. 73-year-old male with left flank pain, no history of kidney stones, afebrile, no tenderness on examination, urinalysis showed presence of blood but not obviously infected, CT scan abdomen and pelvis performed, suspicious on wet read for left-sided distal ureteral stone, also prominent colonic stool without grossly obvious obstructive pattern, no obvious free air. Await formal radiology reading. Renal function normal. IV Toradol given, symptoms improved. Assumed care . Patient having more pain, we will add IV Dilaudid/ Zofran. CT report still pending. CT abdomen and pelvis without contrast. Impressions: Moderate left hydroureteronephrosis secondary to a 5 mm calculus in the distal left ureter, just proximal to the UVJ. No additional urinary tract calculi. There is an 8.8 by 7.7 cm lobulated mass which measures higher than fluid attenuation intraluminally in the cecum. While it could reflect a more packed inspissated ball of stool, it is different in appearance to the surrounding air-fluid stool, and a large cecal mass is not excluded. Recommend correlation with direct visualization with colonoscopy. Multilevel degenerative changes of the spine. The bone marrow attenuation is heterogeneous. The partially imaged spine contains multiple small areas of rounded lucencies, nonspecific and possibly on the basis of aggressive osteopenia although correlate clinically for metastasis /myeloma. Additional findings as above.. See teleradiology report Copy of report given to patient with discussion in presence of life, going over findings of left ureteral stone, hopefully can pass on his own, takes Flomax already, we will give additional oral pain medication now, sent to his pharmacy. Follow up with Urology advised. We also discussed the findings of spinal lesions osteoporosis versus metastatic versus other, with local Urology follow up. We discussed the incidental findings of spinal lesions, outpatient follow up. We also discussed the radiology concern about colonic cecum mass, stool ball only versus some combination of mass and stool, consider lactulose on discharge with pain medication, consider endoscopy in follow up. These findings relayed to the patient with discussion of importance for follow up to make sure there is no colonic lesion that might represent cancer. Contact information given for local urologist, also for general surgery on-call for endoscopy, though patient might need primary care referrals. Discharged home with family. Discharge Plan Departure Patient Disposition: Home Clinical Impression: Acute left flank pain, Calculus of distal left ureter, Mass of cecum Instructions: DI for Kidney Stones Activity Restrictions/Additional Instructions: Left flank pain without obvious trauma, no fevers or chills. Urinalysis showed some blood but not obviously infected. CT scanning abdomen and pelvis showed presence of 5 mm diameter stone in the distal left ureter that accounts for your symptoms. Hopefully this can pass on its own, but might require urology follow up and interventions if it was not passable or if you have complications. No antibiotics indicated at this time. Consider follow up with the local urologists, contact information clinic provided, though you might require referral from your primary care provider. Take pain medications as needed for pain control. Drink plenty of fluids. Antinausea medications to use if needed. Continue your your chronic Flomax medication, as this might help expel the stone. Incidentally also noted on your CT scan was a fairly large sized cecal mass on the right side of the colon, it is possible that this represents a complicated stool ball only, however it is possible there could be mixed stool and some underlying cecal mass of the colon itself. There is no description of any obstruction of the colon, no perforation or abscess. Trial of lactulose to help clear the stool. Consider colonoscopy in follow up, local general surgery contact information provided, though you might require referral from your primary care provider. Incidentally also noted on CT scan were some small lesions in the spine, this could represent osteopenia, these also could represent metastatic lesions from some kind of underlying cancer somewhere, follow up further as an outpatient for now. Prescriptions: New naproxen 500 mg tablet 500 mg PO BID 7 Days Qty: 14 0RF ondansetron 4 mg tablet,disintegrating 4 mg PO Q6H PRN (Reason: nausea and vomiting) Qty: 10 0RF lactulose 20 gram/30 mL solution 20 g PO BID Qty: 300 0RF hydrocodone-acetaminophen 7.5-325 mg tablet 1 tab PO Q6H PRN (Reason: pain) Qty: 20 0RF No Action lisinopril-hydrochlorothiazide [Zestoretic] 20 MG/12.5 MG tablet 1 tab PO QDAY Qty: 0 metformin [Glucophage XR] 500 MG tablet extended release 24 hr 500 mg PO QDAY Qty: 0 terazosin 1 mg capsule 1 mg PO DAILY Patient Comments: TAKE 1 TABLET BY MOUTH EVERY NIGHT AT BEDTIME amlodipine 5 mg tablet 5 mg PO DAILY esomeprazole magnesium 40 mg capsule,delayed release(DR/EC) 40 mg PO DAILY Referrals: Rajeev Chilel DO [Physician] - Pratik Varghese MD [Physician] - Jones Louis MD [Physician] - Lalo White MD [Primary Care Provider] - Stand Alone Forms: Patient Portal/API/Survey
--- NOTE | 2024-10-24 06:03 | DI.CT.S_ITS ---
PROCEDURE: CT KIDNEY URETER BLADDER (KUB) INDICATIONS: L sided flank pain eval for stone TECHNIQUE: Axial sections were acquired from the lung bases to the pubic symphysis. Coronal and sagittal reformats were performed. For radiation dose reduction, the following was used: automated exposure control, adjustment of mA and/or kV according to patient size. COMPARISON: None. FINDINGS: Image quality: Diagnostic. Lower Chest: Mild bibasilar atelectasis. The lung bases are otherwise clear. Moderate coronary artery calcifications. Small hiatal hernia. URINARY: Right Kidney: No stones or hydronephrosis. Right Ureter: No hydroureter. Left Kidney: Moderate hydronephrosis with perinephric stranding. No renal stones. Left Ureter: Stone within the distal ureter measuring 5 x 8 mm resulting in moderate upstream hydroureter. Bladder: Normal wall thickness. No stones. ABDOMEN: Liver: No contour-deforming solid mass. Gallbladder: No radiopaque gallstones or wall thickening. Biliary ducts: No biliary dilation. Pancreas: No ductal dilation. Spleen: Size is within normal limits. Adrenal Glands: No adrenal nodules. Stomach and Bowel: Normal colonic caliber, without significant wall thickening. Lobulated mass within the cecum measuring 8.8 x 7.7 cm. Moderate stool burden. Peritoneum: No abnormal intraperitoneal fluid. No free air. Ventral Wall: No hernia. Abdominal Nodes: No enlarged retroperitoneal or mesenteric lymph nodes. Vessels: Aorta and inferior vena cava are normal in size. Atherosclerotic vascular calcifications. PELVIS: Pelvic Organs: Prostatomegaly. Pelvic Nodes: Unremarkable. Miscellaneous: Small bilateral fat containing inguinal hernias, fluid is seen within the right inguinal hernia. Bones: Degenerative changes of the spine. Decreased osseous mineralization. Multiple small rounded lucencies are noted throughout the spine. IMPRESSION: 1. Obstructing 8 x 5 mm stone within the distal left ureter resulting in moderate upstream hydroureteronephrosis. 2. Lobulated mass within the cecum measuring 8.8 x 7.7 cm. Recommend colonoscopy for further evaluation. 3. Multilevel degenerative changes of the spine with decreased osseous mineralization. Multiple small areas of rounded lucencies, nonspecific and possibly related to aggressive osteopenia although correlate clinically for metastasis/myeloma. 4. Please see above for additional findings. Findings are concordant with preliminary interpretation provided by [facility]. Dictated by: Howie Billings M.D. on 10/24/2024 at 8:29 Approved by: Howie Billings M.D. on 10/24/2024 at 8:35
[2024-10-24 06:14] LABS: Add Manual Diff / Slide Review NO; Basophils Absolute Auto 0 /uL (0-100); Basophils Percent Auto 0.3 % (0-2); Eosinophils Absolute Auto 100 /uL (0-450); Eosinophils Percent Auto 1.2 % (2-4); Hematocrit 41.9 % (41-53); Hemoglobin 14.3 g/dL (13.5-17.5); Lymphocytes Absolute Auto 800 /uL (1100-4500); Lymphocytes Percent Auto 7.7 % (25-40); Mean Corpuscular HGB Conc 34.1 % (30-36); Mean Corpuscular Hemoglobin 29.5 PG (26-34); Mean Corpuscular Volume 86.6 fL (80-100); Monocytes Absolute Auto 600 /uL (0-900); Monocytes Percent Auto 5.4 % (3-14); Neutrophils Absolute Auto 9000 /uL (1500-7000); Neutrophils Percent Auto 85.4 % (50-75); Platelet Count 177 X10^3/uL (150-400); Red Blood Cell Count 4.84 X10^6/uL (4.5-5.9); Red Cell Distribution Width 13.4 % (11.6-14.8); White Blood Cell Count 10.5 X10^3/uL (4.5-11.0)
[2024-10-24 06:19] VITALS: BP 168/80; PULSE 75; O2SAT 98
[2024-10-24 06:20] LABS: BUN Creatinine Ratio 21.3 (6-22); Blood Urea Nitrogen 23 mg/dL (9-20); Calcium 9.5 mg/dL (8.4-10.2); Carbon Dioxide 25 mmol/L (22-32); Chloride 100 mmol/L (98-107); Estimated Glomerular Filt Rate > 60 mL/min (>60); Glucose 184 mg/dL (80-110); HEMOLYSIS 22 (0-50); Potassium 3.8 mmol/L (3.4-5.1); Sodium 134 mmol/L (137-145)
[2024-10-24 06:30] VITALS: BP 141/72; PULSE 51; O2SAT 97
[2024-10-24 07:01] LABS: RBC Urine 5-10/HPF (0-5/HPF); Urine Volume 10mL (spun); WBC Urine 1-5/HPF (0-5/HPF)
[2024-10-24 07:02] LABS: Bacteria Urine None Seen; Culture Indicated Urine Cult Not Indicated; Hyaline Casts Urine 0-1/LPF; Squamous Epithelial Cell Urine 0-1 /HPF (0-5/HPF)
[2024-10-24] MEDS: HYDROMORPHONE 0.5 MG INJ IV (08:12)
[2024-10-24] MEDS: ONDANSETRON 4 MG/2 ML INJ IV (08:13)
[2024-10-24] MEDS: HYDROCODONE/ACET 5/325 TABLET 1 TAB PO (09:05)
[2024-10-24] MEDS: LACTULOSE 20 GM/30 ML SOLUTION PO (09:22)
[2024-10-24 09:33] VITALS: BP 156/80; PULSE 69; RESP 18; O2SAT 99
== END 2024-10-24 09:38 | disposition home or self-care (01) ==
PROVIDERS: Emergency Medicine; Emergency Provider Emergency Medicine; PCP Family Medicine
DX: N20.1 Calculus of ureter (principal); K63.89 Other specified diseases of intestine; R39.11 Hesitancy of micturition; R10.9 Unspecified abdominal pain
CPT/HCPCS: 74176; 80048; 81003; 81015; 85025; 96374; 96375; 99284; J1171; J1885; J2405

== ENCOUNTER → 2024-10-27 13:47 | Outpatient (CLI) | payer MEDICARE, OTHER, SELFPAY | PROVIDERS: PCP Family Medicine; Visit Provider Urology | DX: N20.1 Calculus of ureter (principal); R10.9 Unspecified abdominal pain; R39.9 Unspecified symptoms and signs involving the genitourinary system | CPT/HCPCS: 81002; 87086; 99214 ==

== ENCOUNTER 2024-10-31 09:24 | Day surgery (SDC) | payer MEDICARE, OTHER, SELFPAY ==
[2024-10-27 14:50] VITALS: BMI 28.0
[2024-10-28 13:31] VITALS: BMI 28.0
--- NOTE | 2024-10-31 | DI.RAD.S_ITS ---
PROCEDURE: XR ABDOMEN 1V INDICATIONS: CYSTOSCOPY LT TECHNIQUE: Single intra-operative images acquired by the Urology service. COMPARISON: None. FINDINGS: Opacification of of mildly diffusely dilated left intrarenal collecting system. There is a coiled pigtail catheter in the upper pole. IMPRESSION: Intraoperative fluoroscopy for the Urology service. Dictated by: Eliana Meneses M.D. on 10/31/2024 at 15:58 Approved by: Eliana Meneses M.D. on 10/31/2024 at 15:58
[2024-10-31 09:49] VITALS: BP 135/76; PULSE 74; RESP 18; TEMP 36.7; O2SAT 96; BMI 26.2
[2024-10-31] MEDS: LACTATED RINGERS 1,000 ML 21 ML IV (10:09)
[2024-10-31] MEDS: ACETAMINOPHEN 325 MG TABLET 975 MG PO (11:14)
--- NOTE | 2024-10-31 11:17 | PM.PREOP ---
Pre-operative Note COVID-19 COVID-19 status: Not tested Interval Note History & Physical reviewed/Exam performed by Physician: Yes Changes to H&P: No
[2024-10-31] MEDS: CEFAZOLIN 2 GM/100 ML PREMIX 100 ML IV (11:27)
--- NOTE | 2024-10-31 11:39 | SUR.OPER ---
Lithotomy on padded OR bed, head on pillow, LEFT arm secured on padded arm board at <90 degrees abduction. RIGHT ARM PADDED AND TUCKED. Legs secured in padded yellow fins stirrups.
[2024-10-31] MEDS: iopamidoL 30 ML VIAL INJ (11:50)
[2024-10-31 12:29] VITALS: BP 142/82; PULSE 48; RESP 16; TEMP 36.2; O2SAT 100
--- NOTE | 2024-10-31 12:31 | PM.OP.1 ---
Procedure & Clinicians Procedure: Cystoscopy Left retrograde ureteropyelogram Left ureteroscopy, laser lithotripsy Left ureteral stent placement Intraoperative interpretation of fluoroscopic images, total time < 1 hour Same procedure as scheduled: Yes Indications: 73 y/o M noted to have a newly diagnosed 8mm left distal ureterolith with resultant upstream moderate hydroureteronephrosis and continued pain requiring several doses of narcotics daily. Surgeon: Rajeev Chilel Click Yes if Unassisted: Yes Anesthesia Type: General Operative Notes Findings: Large left distal impacted ureteral stone Closure Type: not applicable Specimen(s): other (kidney stone) Estimated Blood Loss (mL): 5 Blood products transfused: none Procedure in detail: Patient was identified in the preoperative holding area and consent confirmed. He was then brought to the operating room where general anesthesia was induced.? He was placed in the low lithotomy position. He was then prepped and draped in the usual sterile fashion. A surgical timeout was conducted and all were in agreement. Access to the bladder was obtained via a 30 degree cystoscope.? Complete cystoscopy was then performed and no concerning bladder masses or lesions were appreciated.? Bilateral ureteral orifices were easily identified and noted to be orthotopic in nature.? The left ureteral orifice was then cannulated using a 0.035 sensor tip ureteral guidewire and a 5Fr ureteral catheter was advanced over the guidewire and into the distal left ureter.? The guidewire was then removed and a retrograde ureteropyelogram was performed which noted a large filling defect in the distal left ureter, consistent with CT findings of a stone in the area. The ureteral guidewire was then readvanced through the ureteral catheter and into the left renal pelvis.? The ureteral catheter was then removed and a semirigid ureteroscope was easily advanced into his left ureter alongside the guidewire and to the level of the stone (it was noted to be severely impacted with significant surrounding ureteral edema).? A 200 micron laser fiber was then utilized to perform laser lithotripsy.? All stone fragments >1mm in size were removed via the stone basket and sent for chemical analysis.? The ureter was then directly visualized upon removal of the ureteroscope and noted to be stone free.? A 6Fr multi-length JJ ureteral stent without strings was then advanced over the ureteral guidewire.? Upon removal of the guidewire, a good curl was noted in the left renal pelvis and the bladder using fluoroscopy.? The bladder was then drained.? Anesthesia was reversed, he was extubated in the OR and transferred to the PACU in stable condition for recovery. Complications: none Post-operative Condition: stable Disposition: PACU Plan for aftercare: Discharge home from PACU. Will return to Urology clinic on 25 Nov 2024 at 1040 to have his left ureteral stent removed.
[2024-10-31 12:34] VITALS: BP 147/82; PULSE 46; RESP 16; O2SAT 98
[2024-10-31 12:40] VITALS: BP 154/78; PULSE 46; RESP 16; O2SAT 98
[2024-10-31 12:48] VITALS: BP 154/79; PULSE 45; RESP 16; TEMP 36.8; O2SAT 98
[2024-10-31] MEDS: OXYCODONE IR 5 MG TABLET PO (13:10)
== END 2024-10-31 13:45 | disposition home or self-care (01) ==
PROVIDERS: PCP Family Medicine; Referring Provider Urology; Visit Provider Urology
PROC: 0TF78ZZ Fragmentation in Left Ureter, Via Natural or Artificial Opening Endoscopic (ICD-10-PCS; CPT 52353; principal; 2024-10-31 10:45)
DX: N20.1 Calculus of ureter (principal); N13.30 Unspecified hydronephrosis
CPT/HCPCS: 52356; 74018; 76000; 82962; J0690; J1100; J1885; J2704; Q9967

== ENCOUNTER → 2024-11-17 12:31 | Outpatient (CLI) | payer MEDICARE, OTHER, SELFPAY ==
--- NOTE | 2024-11-17 12:33 | DI.CT.S_ITS ---
PROCEDURE: CT ABDOMEN PELVIS W CON INDICATIONS: Colon mass TECHNIQUE: After the administration of intravenous contrast, axial sections acquired from the lung bases to the pubic symphysis. Coronal and sagittal reformats were performed. For radiation dose reduction, the following was used: automated exposure control, adjustment of mA and/or kV according to patient size. COMPARISON: [facility], CT, CT KIDNEY URETER BLADDER (KUB), 10/24/2024, 6:11. FINDINGS: Image quality: Diagnostic. Lower Chest: No significant findings. ABDOMEN: Liver: No solid mass. Gallbladder: No radiopaque gallstones or wall thickening. Biliary ducts: No biliary dilation. Pancreas: No ductal dilation. Spleen: Size is within normal limits. Adrenal Glands: No adrenal nodules. Kidneys and Ureters: No hydronephrosis. No solid mass. No complex renal cystic lesion which requires follow up. Interval placement of a left-sided nephroureteral stent, with resolved hydronephrosis. No stones along the course of the stent. Stomach and Bowel: Normal colonic caliber, without significant wall thickening. No colonic mass identified at the cecum. Fecal debris within the small bowel. Peritoneum: No abnormal intraperitoneal fluid. No free air. Ventral Wall: No significant ventral hernia. Abdominal Nodes: No retroperitoneal or mesenteric adenopathy by size criteria. Vessels: Aorta and inferior vena cava are normal in size. PELVIS: Pelvic Organs: Unremarkable. Bladder: No bladder wall thickening, accounting for underdistention. No bladder stones. Pelvic Nodes: No enlarged lymph nodes. Miscellaneous: No inguinal hernias are seen. Bones: No aggressive osseous abnormality. Degenerative disc disease of the lumbar spine. IMPRESSION: No colonic mass identified. The mass seen on prior CT was likely a pseudomass caused by formed stool. Interval placement of a left-sided nephroureteral stent, with resolved hydronephrosis. No stone along the course of the stent or within the urinary bladder. Fecal debris within the small-bowel, usually indicating small intestinal bacterial overgrowth versus slow transit. Dictated by: Donny Asencio M.D. on 11/17/2024 at 17:39 Approved by: Donny Asencio M.D. on 11/17/2024 at 17:44
== END ==
PROVIDERS: PCP Family Medicine; Referring Provider Surgery; Visit Provider Surgery
DX: K63.89 Other specified diseases of intestine (principal); Z96.0 Presence of urogenital implants
CPT/HCPCS: 74177; Q9967

== ENCOUNTER → 2024-12-17 12:13 | Outpatient (CLI) | payer MEDICARE, OTHER, SELFPAY ==
--- NOTE | 2024-12-17 12:15 | DI.RAD.S_ITS ---
PROCEDURE: XR DEXA AXIAL SKELETON INDICATIONS: DISORDER OF BONE DENSITY STRUCTURE COMPARISON: None. FINDINGS: Lumbar Spine: Bone mineral density 1.45 g/cm2, T score 3.8,. Left Femoral Neck: Bone mineral density 0.83 g/cm2, T score -0.2. Left Hip: Bone mineral density 0.87 g/cm2, T score -0.6 Fracture Risk Calculation (when applicable): 10-year fracture risk of a major osteoporotic fracture 7.7 percent and of a hip fracture 2.1 percent. (parental fracture) (T score greater or equal to -1.0 to: NORMAL) (T score from -1.1 to -2.4: OSTEOPENIA) (T score less than or equal to -2.5: OSTEOPOROSIS) IMPRESSION: T-scores are within normal limits. Follow-up guidelines as follows: Osteoporosis: Consider a repeat DEXA and Vertebral Fracture Assessment (VFA) exam in 2 years or sooner if medically necessary, to reassess this patient's status. Osteopenia: Consider a repeat DEXA in 2-3 years to reassess this patient's status, or if there is a new clinical indication. Normal: Consider a repeat DEXA in 5 years or sooner, or if there is a new clinical indication. All treatment decisions require clinical judgment and consideration of individual patient factors, including patient preferences, comorbidities, previous drug use, risk factors not captured in the FRAX model (e.g., frailty, falls, vitamin D deficiency, increased bone turnover, interval significant decline in bone density ) and possible under- or over-estimation of fracture risk by FRAX. In addition, the NOF Guide recommends that FDA-approved medical therapies be considered in postmenopausal women and men age >= 50 years with a: * Hip or vertebral (clinical or morphometric) fracture * T-score of <=-2.5 at the spine or hip * Ten-year fracture probability by FRAX of >= 3% for hip fracture or >=20% for major osteoporotic fracture. Dictated by: Ge Chavez M.D. on 12/17/2024 at 16:21 Approved by: Ge Chavez M.D. on 12/17/2024 at 16:24
== END ==
PROVIDERS: PCP Family Medicine; Referring Provider Family Medicine; Visit Provider Family Medicine
DX: M85.89 Other specified disorders of bone density and structure, multiple sites (principal)
CPT/HCPCS: 77080

== ENCOUNTER → 2025-05-05 14:09 | Outpatient (CLI) | payer MEDICARE, OTHER, SELFPAY ==
--- NOTE | 2025-05-05 14:11 | DI.CT.S_ITS ---
PROCEDURE: CT LUMBAR SPINE W CON INDICATIONS: LOWER BACK PAIN TECHNIQUE: After the administration of intravenous Isovue contrast, 3 mm thick sections acquired through the levels of interest. Sagittal and coronal reformats were then constructed. For radiation dose reduction, the following was used: automated exposure control. COMPARISON: [facility], CT, CT KIDNEY URETER BLADDER (KUB), 10/24/2024, 6:11. [facility], CT, CT ABDOMEN PELVIS W CON, 11/17/2024, 13:40. FINDINGS: Image quality: Excellent. Bones: Previously described rounded lucencies are similar compared to prior exam and most pronounced within the L4 vertebral body. Multilevel degenerative changes of the spine are redemonstrated with disc height loss, osteophytosis and facet arthropathy. Mild to moderate multilevel central canal stenosis. At least moderate bilateral neural foraminal stenosis at L5-S1. Moderate bilateral neural foraminal stenosis at L4-5. Decreased osseous mineralization. Soft tissues: Atherosclerotic vascular calcifications. IMPRESSION: Stable appearance of rounded lucencies within the lumbar spine, most pronounced within the L4 vertebral body. Multilevel degenerative changes of the lumbar spine are redemonstrated. Dictated by: Howie Billings M.D. on 05/06/2025 at 10:58 Approved by: Howie Billings M.D. on 05/06/2025 at 11:03
== END ==
PROVIDERS: PCP Family Medicine; Referring Provider Family Medicine; Visit Provider Family Medicine
DX: M89.9 Disorder of bone, unspecified (principal); M47.816 Spondylosis without myelopathy or radiculopathy, lumbar region; M48.07 Spinal stenosis, lumbosacral region; M48.061 Spinal stenosis, lumbar region without neurogenic claudication; M25.78 Osteophyte, vertebrae; I70.90 Unspecified atherosclerosis
CPT/HCPCS: 72132; Q9967

== ENCOUNTER → 2025-06-01 14:58 | Outpatient (CLI) | payer MEDICARE, OTHER, SELFPAY ==
--- NOTE | 2025-06-01 15:01 | DI.RAD.S_ITS ---
PROCEDURE: XR CERVICAL SPINE 2V OR 3V INDICATIONS: NECK PAIN, R ARM NUMBNESS TECHNIQUE: 3 view(s) of the cervical spine were acquired. COMPARISON: None. FINDINGS: Bones: No fractures or dislocations to the T2 level. Extensive multilevel degenerative changes throughout the cervical spine includes multilevel anterior osteophytosis and disc height loss with anterior osseous fusion of disc osteophyte complexes. Multilevel bilateral facet hypertrophy. The lateral masses of C1 appear intact on the odontoid view. No suspicious bony lesions. Soft tissues: No prevertebral soft tissue swelling. IMPRESSION: Advanced degenerative change of the cervical spine without evidence of acute osseous abnormality. Dictated by: Gerardo Bardales M.D. on 06/02/2025 at 6:48 Approved by: Gerardo Bardales M.D. on 06/02/2025 at 6:50
== END ==
PROVIDERS: PCP Family Medicine; Referring Provider Family Medicine; Visit Provider Family Medicine
DX: M47.812 Spondylosis without myelopathy or radiculopathy, cervical region (principal); M25.78 Osteophyte, vertebrae; R20.0 Anesthesia of skin; M54.2 Cervicalgia; G89.29 Other chronic pain
CPT/HCPCS: 72040